=== PATIENT | male | born 1985 | race Caucasian/White ===

== ENCOUNTER 2018-04-17 15:20 | Inpatient (IN) | payer OTHER ==
[~2018-04-17] VITALS: Ht 167.6 cm; Wt 66.0 kg
[2018-04-17 17:07] LABS: HEMOGLOBIN 15.5 G/DL (12.5-16.6); MCH 29.1 PG (29.0-34.0); MCHC 34.4 G/DL (30.0-36.0); MCV 84.4 FL (86-99); PLATELET COUNT 250 K/uL (156-360); RBC DIS.WIDTH-CV 13.3 % (11.8-14.6); RBC DIS.WIDTH-SD 41.4 % (39-53); RED BLOOD COUNT 5.33 M/uL (4.00-5.50); WHITE BLOOD COUNT 6.3 K/uL (4.1-10.2)
[2018-04-17 17:15] LABS: CHLORIDE 108 mEq/L (99-109); POTASSIUM 3.8 mEq/L (3.7-5.4); SODIUM 144 mEq/L (136-147)
[2018-04-17 17:17] LABS: GLUCOSE 91 mg/dL (70-99)
[2018-04-17 17:20] LABS: SERUM ETHYL ALCOHOL < 10 mg/dL
[2018-04-17 17:21] LABS: CREATININE 0.9 mg/dL (0.6-1.3); GFR ESTIMATE (CALCULATED) > 59 mL/min/ (58.99-99999)
[2018-04-17 17:23] LABS: UREA NITROGEN (BUN) 12 mg/dL (9-23)
[2018-04-17 17:24] LABS: ACETAMINOPHEN (TYLENOL) < 10 mcg/mL (10-30); SALICYLATE < 5.0 MG/DL (15-30)
[2018-04-17 18:31] LABS: COCAINE PRESUMPTIVE POSITIVE (150 ng/mL); METHAMPHETAMINE NEGATIVE (500 ng/mL); PHENCYCLIDINE PRESUMPTIVE POSITIVE (25 ng/mL); THC CANNABINOIDS NEGATIVE (50 ng/mL)
[2018-04-17 18:32] LABS: AMPHETAMINE NEGATIVE (500 ng/mL); BARBITURATES NEGATIVE (200 ng/mL); BENZODIAZEPINES NEGATIVE (150 ng/mL); BUPRENORPHINE NEGATIVE (10 ng/mL); METHADONE NEGATIVE (200 ng/mL); OPIATES (MORPHINE) PRESUMPTIVE POSITIVE (100 ng/mL); OXYCODONE NEGATIVE (100 ng/mL); PROPOXYPHENE NEGATIVE (300 ng/mL); TRICYCLIC ANTIDEPRESSANTS NEGATIVE (300 ng/mL)
[2018-04-17 20:09] VITALS: BP 131/90
[2018-04-17 20:37] VITALS: BP 131/90
[2018-04-18 09:21] VITALS: BP 135/82
[2018-04-18 16:37] VITALS: BP 87/42
[2018-04-19 08:03] VITALS: BP 121/85
== END 2018-04-19 15:01 | disposition home or self-care (01) | DRG 897 ==
LOC: EME 15:20 → EDOF 18:20 → 1WEST 18:20 → ENRESERV 19:20 → 1WEST 19:56
PROVIDERS: Emergency Medicine
DX: F11.23 Opioid dependence with withdrawal (principal); F43.21 Adjustment disorder with depressed mood; R45.851 Suicidal ideations; F17.200 Nicotine dependence, unspecified, uncomplicated; F14.90 Cocaine use, unspecified, uncomplicated; F16.20 Hallucinogen dependence, uncomplicated
CPT/HCPCS: 80048; 84999; 85027; 90839; 97165 GO; 99281; 99285; G0480; J0572; Q0177